=== PATIENT | female | born 1950 | race Caucasian/White ===

== ENCOUNTER 2018-07-11 09:38 | Emergency (ER) | payer OTHER ==
[~2018-07-11] VITALS: Ht 162.6 cm; Wt 68.1 kg
[~2018-07-11 09:38] MED LIST: AMLODIPINE BESYL5 MG PO; CITALOPRAM HBR20 MG PO; COMBIGAN O20 DROP/5 RIGHT EYE; DUREZOL 0.100 DROP/5 RIGHT EYE; OMNIPRED10 ML BOTH EYES; PROAIR HFA8.5 GM IH
[2018-07-11] MEDS ORDERED: NAPROSYN500 MG PO (12:32)
[2018-07-11] MEDS ORDERED: BACTRIM,SEPT1 TABLET PO (12:32)
[2018-07-11] MEDS ORDERED: KEFLEX500 MG PO (12:32)
[2018-07-11 12:43] VITALS: BP 167/98
== END 2018-07-11 12:43 | disposition home or self-care (01) ==
LOC: EME 09:38
PROC: 3E0234Z Introduction of Serum, Toxoid and Vaccine into Muscle, Percutaneous Approach (ICD-10-PCS; principal; 2018-07-11)
DX: S60.427A Blister (nonthermal) of left little finger, initial encounter (principal); L08.9 Local infection of the skin and subcutaneous tissue, unspecified; M19.042 Primary osteoarthritis, left hand; W23.0XXA Caught, crushed, jammed, or pinched between moving objects, initial encounter; Z23 Encounter for immunization
CPT/HCPCS: 73130; 99281; 99283